=== PATIENT | female | born 2000 | race Caucasian/White ===

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

== ENCOUNTER 2018-05-25 03:31 | Emergency (ER) | payer MEDICAID ==
[2018-05-25] MEDS ORDERED: IPRATROPIUM/ALBUTEROL 3 ML DEYVIAL ONE (03:35)
--- NOTE | 2018-05-25 04:04 | EDPHY ---
H & P Stated Complaint: asthma attack for past 2 days Time Seen by Provider: 05/25/18 03:49 HPI/ROS: HPI The patient presents with asthma exacerbation while she was trying to sleep, she developed shortness of breath and wheezing. She used her inhaler twice. This helped her symptoms. She had ongoing shortness of breath which was moderate in severity and constant so she came into the emergency department. She is also complaining of sharp sternal chest pain which is mild. She has had similar symptoms in the setting anxiety attack.. REVIEW OF SYSTEMS 10 systems were reviewed and negative with the exception of the elements mentioned in the history of present illness. PMHx: History of asthma, history of anxiety Soc Hx: Nonsmoker PHYSICAL General Appearance: Alert, no distress Eyes: Pupils equal and round no pallor or injection ENT, Mouth: Mucous membranes moist Respiratory: There are no retractions, lungs are clear to auscultation Cardiovascular: Regular rate and rhythm Gastrointestinal: Abdomen is soft and non-tender, no masses, bowel sounds normal Neurological: A&O, moves all extremities Skin: Warm and dry, no rashes Musculoskeletal: Neck is supple non tender Extremities: symmetrical, full range of motion Psychiatric: Patient is oriented X 3, there is no agitation Source: Patient Exam Limitations: No limitations - Personal History Current Tetanus/Diphtheria Vaccine: Yes Current Tetanus Diphtheria and Acellular Pertussis (TDAP): Yes - Medical/Surgical History Hx Asthma: Yes Hx Chronic Respiratory Disease: No Hx Diabetes: No Hx Cardiac Disease: No Hx Renal Disease: No Hx Cirrhosis: No Hx Alcoholism: No Hx HIV/AIDS: No Hx Splenectomy or Spleen Trauma: No Other PMH: PMHx: WHITFIELD, anxiety, asthma, ovarian cysts, cyst in low back, family Hx of diabetes. PSHx: denies - Social History Smoking Status: Never smoked Constitutional: Initial Vital Signs Temperature (C) 37.0 C 05/25/18 03:34 Heart Rate 107 H 05/25/18 03:34 Respiratory Rate 20 05/25/18 03:34 O2 Sat (%) 95 05/25/18 03:34 O2 Delivery Mode Room Air Allergies/Adverse Reactions: No Known Allergies Allergy (Unverified 05/25/18 03:37) Home Medications: Medication Instructions Recorded Albuterol [Proventil Inhaler HFA 1 - 2 puffs IH Q4H #1 mdi 09/21/17 (*)] Medical Decision Making - Diagnostics EKG Interpretation: EKG: Complete interpretation has been separately recorded in the [facility] archive. Summary impression: Normal sinus rhythm Imaging Results: Chest x-ray two view shows no cardiomegaly, no infiltrate, no effusion, interpreted by me, radiology interpretation is pending Imaging: I viewed and interpreted images myself Differential Diagnosis: This is a 18-year-old healthy female with history of asthma and anxiety who presents with chest pain and shortness of breath tonight. On exam, she is well- appearing, initially she is tachycardic, however this is normalized. Her lungs are clear. Chest x-ray and EKG were performed and are unremarkable. I believe she is suitable for discharge. Most likely she has suffered from a mild asthma exacerbation with anxiety. I have also considered pericarditis, pneumonia, pneumothorax, PE is low on my list given resolution of her symptoms currently. Departure - Departure Disposition: Home, Routine, Self-Care Clinical Impression: Shortness of breath Condition: Good Instructions: Asthma (ED), Anxiolysis in Adults (ED) Additional Instructions: I recommend that you use her albuterol inhaler as needed. There is a chance that your symptoms could be related to anxiety. Because of this, I do recommend you talk to her primary care doctor because there may be some medications that would be helpful for you. Referrals: NONE *PRIMARY CARE P,. [Primary Care Provider] - As per Instructions
[2018-05-25 04:37] VITALS: BP 142/82
== END 2018-05-25 04:35 | disposition home or self-care (01) ==
DX: R06.02 Shortness of breath (principal); J45.909 Unspecified asthma, uncomplicated; F41.9 Anxiety disorder, unspecified

== ENCOUNTER 2018-07-21 00:52 | Emergency (ER) | payer MEDICAID ==
--- NOTE | 2018-07-21 01:35 | EDPHY ---
H & P Stated Complaint: SEVERE HEADACHE SINCE YESTERDAY NO SLEEP. NAUSEA AND PHOTOPHOBIA Time Seen by Provider: 07/21/18 01:35 [facility] HPI/ROS: HPI CHIEF COMPLAINT: Right-sided headache, nausea HISTORY OF PRESENT ILLNESS: 18-year-old female, she is otherwise healthy has a history of asthma and ovarian cyst, denies being however presents emergency room with right-sided headache. Patient states she developed this headache over the weekend. It was not sudden onset is not thunderclap. His predominantly right-sided. The pain is right frontal and right side of her head. She does not have a history of migraines or severe headaches. She had nausea with this over the weekend. Due to the persistent pain she decided come to the emergency room. She denies any neck pain, denies fever, denies chest pain or shortness of breath. Denies vision disturbances, denies double vision or blurry vision. Current level pain 7/10. Headache is been present for 48 hr. Past Medical History: Asthma and ovarian cyst. Past Surgical History: Denies recent surgery Social History: He denies drugs alcohol tobacco. Family History: Noncontributory ROS REVIEW OF SYSTEMS: 10 Systems were reviewed and negative with the exception of the elements mentioned in the history of present illness. Exam Constitutional the nontoxic triage nursing summary reviewed, vital signs reviewed, awake/alert. Eyes normal conjunctivae and sclera, EOMI, PERRLA. HENT normal inspection, atraumatic, moist mucus membranes, no epistaxis, neck supple/ no meningismus, no raccoon eyes. Respiratory clear to auscultation bilaterally, normal breath sounds, no respiratory distress, no wheezing. Cardiovascular rate normal, regular rhythm, no murmur, no edema, distal pulses normal. Gastrointestinal soft, non-tender, no rebound, no guarding, normal bowel sounds, no distension, no pulsatile mass. Genitourinary no CVA tenderness. Musculoskeletal no midline vertebral tenderness, full range of motion, no calf swelling, no tenderness of extremities, no meningismus, good pulses, neurovascularly intact. Skin pink, warm, & dry, no rash, skin atraumatic. Neurologic no meningeal signs, unremarkable neuro exam, awake, alert and oriented x 3, AAOx3, moves all 4 extremities equally, motor intact, sensory intact, CN II-XII intact, normal cerebellar, normal vision, normal speech. Psychiatric normal mood/affect. Heme/Lymph/Immune no lymphadenopathy. Differential Diagnosis: Includes but is not limited to in a particular order migraine headache, tension headache, cluster headache, intracranial bleed, brain tumor Medical Decision Making: Plan for this patient IV establishment IV fluid bolus , migraine cocktail, CT scan head without contrast and re-evaluate. Re-evaluation: CT scan head without contrast negative for acute bleed or trauma. 0334: Patient re-evaluate is feeling much better. Headache is completely resolved. Her neurological exam is unremarkable. She feels much better is requesting discharge home. Vital signs are stable. Blood work reviewed. CT scan head without contrast negative for acute injury or bleed or tumor. Return precautions discussed. She understands return emergency room develops worsening headache, fever, vomiting. Source: Patient - Personal History LMP (Females 10-55): Over 28 Days Ago Current Tetanus/Diphtheria Vaccine: Yes Current Tetanus Diphtheria and Acellular Pertussis (TDAP): Yes - Medical/Surgical History Hx Asthma: Yes Hx Chronic Respiratory Disease: No Hx Diabetes: No Hx Cardiac Disease: No Hx Renal Disease: No Hx Cirrhosis: No Hx Alcoholism: No Hx HIV/AIDS: No Hx Splenectomy or Spleen Trauma: No Other PMH: PMHx: [place], anxiety, asthma, ovarian cysts, cyst in low back, family Hx of diabetes. PSHx: denies - Social History Smoking Status: Never smoked Constitutional: Initial Vital Signs Temperature (C) 37.1 C 07/21/18 01:55 MST Heart Rate 79 07/21/18 01:55 MST Respiratory Rate 18 07/21/18 01:55 MST Blood Pressure 125/80 H 07/21/18 01:55 MST O2 Sat (%) 98 07/21/18 01:55 MST O2 Delivery Mode Room Air Allergies/Adverse Reactions: No Known Allergies Allergy (Unverified 07/21/18 01:03 MST) Home Medications: Medication Instructions Recorded Albuterol [Proventil Inhaler HFA 1 - 2 puffs IH Q4H #1 mdi 09/21/17 (*)] Acet/Caffeine/Buta Fioricet 1 each PO Q6 #7 tab 07/21/18 [Fioricet (*)] Medical Decision Making - Data Points Laboratory Results: Laboratory Results 07/21/18 01:49 MST 07/21/18 01:49 MST 07/21/1804/18 18 01:49 MST 01:49 MST 01:49 MST WBC 9.14 10^3/uL 10^3/uL (3.80-9.50) RBC 4.80 10^6/uL 10^6/uL (4.18-5.33) Hgb 13.1 g/dL g/dL (12.6-16.3) Hct 39.0 % % (38.0-47.0) MCV 81.3 fL L fL (81.5-99.8) MCH 27.3 pg L pg (27.9-34.1) MCHC 33.6 g/dL g/dL (32.4-36.7) RDW 13.2 % % (11.5-15.2) Plt Count 235 10^3/uL 10^3/uL (150-400) MPV 11.6 fL fL (8.7-11.7) Neut % (Auto) 53.2 % % (39.3-74.2) Lymph % (Auto) 36.4 % % (15.0-45.0) [place] % (Auto) 8.8 % % (4.5-13.0) Eos % (Auto) 1.1 % % (0.6-7.6) Baso % (Auto) 0.3 % % (0.3-1.7) Nucleat RBC Rel Count 0.0 % % (0.0-0.2) Absolute Neuts (auto) 4.86 10^3/uL 10^3/uL (1.70-6.50) Absolute Lymphs (auto) 3.33 10^3/uL H 10^3/uL (1.00-3.00) Absolute Monos (auto) 0.80 10^3/uL 10^3/uL (0.30-0.80) Absolute Eos (auto) 0.10 10^3/uL 10^3/uL (0.03-0.40) Absolute Basos (auto) 0.03 10^3/uL 10^3/uL (0.02-0.10) Absolute Nucleated RBC 0.00 10^3/uL 10^3/uL (0-0.01) Immature Gran % 0.2 % % (0.0-1.1) Immature Gran # 0.02 10^3/uL 10^3/uL (0.00-0.10) Sodium 140 mEq/L mEq/L (135-145) Potassium 4.0 mEq/L mEq/L (3.3-5.0) Chloride 109 mEq/L mEq/L (97-110) Carbon Dioxide 22 mEq/l mEq/l (22-31) Anion Gap 9 mEq/L mEq/L (6-14) BUN 11 mg/dL mg/dL (7-23) Creatinine 0.7 mg/dL mg/dL (0.6-1.0) Estimated GFR > 60 Glucose 119 mg/dL H mg/dL (70-100) Calcium 9.2 mg/dL mg/dL (8.5-10.4) Beta HCG, Qual NEGATIVE Medications Given: Discontinued Medications Dexamethasone (Decadron Injection) 10 mg IVP EDNOW ONE Stop: 07/21/18 01:39 MST Last Admin: 07/21/18 02:03 Dose: 10 mg Diphenhydramine HCl (Benadryl Injection) 50 mg IVP EDNOW ONE Stop: 07/21/18 01:39 MST Last Admin: 07/21/18 02:03 Dose: 50 mg Sodium Chloride (Ns) 1,000 mls @ 0 mls/hr IV ONCE ONE; Wide Open PRN Reason: Protocol Stop: 07/21/18 01:39 MST Last Admin: 07/21/18 02:03 Dose: 1,000 mls Ketorolac Tromethamine (Toradol) 30 mg IVP EDNOW ONE Stop: 07/21/18 01:39 MST Last Admin: 07/21/18 02:04 Dose: 30 mg Metoclopramide HCl (Reglan Injection) 10 mg IVP EDNOW ONE Stop: 07/21/18 01:39 MST Last Admin: 07/21/18 02:04 Dose: 10 mg Departure - Departure Disposition: Home, Routine, Self-Care Clinical Impression: Migraine headache Qualifiers: Migraine type: other Status migrainosus presence: without status migrainosus Intractability: not intractable Qualified Code(s): G43.809 - Other migraine, not intractable, without status migrainosus Condition: Good Instructions: Migraine Headache (ED), Acute Headache (ED) Additional Instructions: 1. Stay well-hydrated. 2. Return emergency room if worsening symptoms 3. Follow up with your primary care doctor Referrals: NONE *PRIMARY CARE P,. [Primary Care Provider] - As per Instructions [facility],. [Clinic] - As per Instructions Prescriptions: Acet/Caffeine/Buta Fioricet [Fioricet (*)] 1 each PO Q6 #7 tab
[2018-07-21] MEDS ORDERED: METOCLOPRAMIDE 10 MG/2 ML VIAL IVP ONE (01:38)
[2018-07-21] MEDS ORDERED: KETOROLAC 30 MG/1 ML SDV IVP ONE (01:38)
[2018-07-21] MEDS ORDERED: NS 1,000 ML IV ONE (01:38)
[2018-07-21] MEDS ORDERED: DEXAMETHASONE 10 MG/ML VIAL IVP ONE (01:38)
[2018-07-21] MEDS ORDERED: DEXAMETHASONE 4 MG/ML VIAL ONE (01:56)
[2018-07-21 01:59] LABS: PLATELET COUNT 235 10^3/uL (150-400)
[2018-07-21 03:46] VITALS: BP 113/78
== END 2018-07-21 03:46 | disposition home or self-care (01) ==
DX: G43.809 Other migraine, not intractable, without status migrainosus (principal); J45.909 Unspecified asthma, uncomplicated; E86.9 Volume depletion, unspecified
CPT/HCPCS: 96374; J1100; J1200; J1885; J2765